=== PATIENT | female | born 1985 | race African-American/Black ===

== ENCOUNTER 2016-07-01 12:36 | Emergency (ER) | payer OTHER ==
[~2016-07-01] VITALS: Ht 180.3 cm; Wt 82.6 kg
[2016-07-01] MEDS ORDERED: ZOFRAN ODT4 MG PO (13:04)
[2016-07-01 13:24] VITALS: BP 110/68
== END 2016-07-01 13:25 | disposition home or self-care (01) ==
LOC: EME 12:36
DX: J02.0 Streptococcal pharyngitis (principal); F17.200 Nicotine dependence, unspecified, uncomplicated
CPT/HCPCS: 87651 90; 99281; 99284; J0561

== ENCOUNTER 2017-01-31 20:19 | Emergency (ER) | payer OTHER ==
[~2017-01-31] VITALS: Ht 180.3 cm; Wt 79.7 kg
[~2017-01-31 20:19] MED LIST: ZOFRAN ODT4 MG PO
[2017-01-31 21:13] LABS: CHLORIDE 99 mEq/L (99-109); POTASSIUM 3.2 mEq/L (3.7-5.4); SODIUM 136 mEq/L (136-147)
[2017-01-31 21:15] LABS: GLUCOSE 82 mg/dL (70-99)
[2017-01-31 21:16] LABS: ANION GAP 15 MEQ/L (2-14)
[2017-01-31 21:17] LABS: TOTAL BILIRUBIN 0.8 mg/dL (0.0-1.0)
[2017-01-31 21:19] LABS: ALKALINE PHOSPHATASE 73 IU/L (3-129); GFR ESTIMATE (CALCULATED) > 59 mL/min/
[2017-01-31 21:20] LABS: UREA NITROGEN (BUN) 8 mg/dL (9-23)
[2017-01-31 21:50] LABS: QUANTITATIVE HCG 70912.4 MIU/ML
[2017-01-31] MEDS ORDERED: ZOFRAN ODT8 MG PO (22:23)
[2017-01-31] MEDS ORDERED: DICLEGIS DR 101 EACH PO (22:23)
[2017-01-31] MEDS ORDERED: PEPCID20 MG PO (22:39)
[2017-01-31 22:55] VITALS: BP 128/78
== END 2017-01-31 22:57 | disposition home or self-care (01) ==
LOC: EME 20:19
PROVIDERS: Physician Assistant
DX: O21.9 Vomiting of pregnancy, unspecified (principal); O26.891 Other specified pregnancy related conditions, first trimester; R07.89 Other chest pain; O99.331 Smoking (tobacco) complicating pregnancy, first trimester; F17.200 Nicotine dependence, unspecified, uncomplicated; Z3A.11 11 weeks gestation of pregnancy
CPT/HCPCS: 76801; 80053; 81003; 84702; 99281; 99284; J2405; J7030

== ENCOUNTER 2017-07-10 20:25 | Emergency (ER) | payer SELFPAY ==
[~2017-07-10] VITALS: Ht 180.3 cm; Wt 92.6 kg
[~2017-07-10 20:25] MED LIST changes: +DICLEGIS DR 101 EACH PO; +PEPCID20 MG PO; +ZOFRAN ODT8 MG PO
[2017-07-10] MEDS ORDERED: TESSALON PERLE100 MG PO (22:07)
[2017-07-10 22:39] VITALS: BP 136/71
== END 2017-07-10 22:40 | disposition home or self-care (01) ==
LOC: EME 20:25
DX: B34.9 Viral infection, unspecified (principal); R05 Cough; F17.200 Nicotine dependence, unspecified, uncomplicated
CPT/HCPCS: 87502; 99281; 99283

== ENCOUNTER 2017-08-21 06:43 | Emergency (ER) | payer SELFPAY ==
[~2017-08-21] VITALS: Ht 180.3 cm; Wt 92.0 kg
[~2017-08-21 06:43] MED LIST changes: +TESSALON PERLE100 MG PO
[2017-08-21 07:21] LABS: BASOPHIL (%) 0.8 % (0-1); BASOPHIL COUNT 0.1 K/uL (0-0.1); EOSINOPHIL (%) 2.4 % (0-5); EOSINOPHIL COUNT 0.2 K/uL (0-0.3); HEMATOCRIT 31.8 % (36.0-46.0); IMMATURE GRANULOCYTE (%) 0.4 % (0.0-0.7); LYMPHOCYTE (%) 36.3 % (15-42); LYMPHOCYTE COUNT 2.9 K/uL (1.0-2.8); MCH 27.8 PG (29.0-34.0); MCHC 34.6 G/DL (30.0-36.0); MCV 80.3 FL (83-99); MONOCYTE (%) 7.8 % (3-12); MONOCYTE COUNT 0.6 K/uL (0-0.8); NEUTROPHIL (%) 52.3 % (45-76); NEUTROPHIL COUNT 4.2 K/uL (1.8-6.4); PLATELET COUNT 191 K/uL (156-360); RBC DIS.WIDTH-CV 14.9 % (11.8-14.6); RBC DIS.WIDTH-SD 43.8 % (39-53); RED BLOOD COUNT 3.96 M/uL (3.80-5.20)
[2017-08-21 07:58] LABS: CHLORIDE 108 MEQ/L (99-109); CREATININE 0.8 MG/DL (0.6-1.3); GFR ESTIMATE (CALCULATED) > 59 mL/min/; GLUCOSE 98 mg/dL (70-99); POTASSIUM 3.8 MEQ/L (3.7-5.4); SODIUM 139 MEQ/L (136-147); UREA NITROGEN (BUN) 7 mg/dL (9-23)
[2017-08-21 07:59] LABS: APPEARANCE SL.HAZY ((CLEAR)); BILIRUBIN NEGATIVE; BLOOD LARGE; COLOR YELLOW ((YELLOW)); GLUCOSE (STRIP) NEGATIVE; KETONES NEGATIVE; LEUKOCYTES NEGATIVE; NITRITE NEGATIVE; PROTEIN (STRIP) NEGATIVE; SPECIFIC GRAVITY 1.016 (1.000-1.030); UROBILINOGEN 0.2 MG/DL (0.2-1.0)
[2017-08-21 08:18] LABS: QUANTITATIVE HCG 37367.7 MIU/ML
[2017-08-21 08:46] LABS: BACTERIA NONE SEEN /HPF; EPITHELIAL CELLS 1+ /HPF; MUCUS TRACE /LPF; RED BLOOD CELLS NONE SEEN /HPF (0-5); UCUL ADDED? NO; WHITE BLOOD CELLS 0-5 /HPF (0-5)
[2017-08-21] MEDS ORDERED: ZOFRAN ODT4 MG PO (11:04)
[2017-08-21 11:18] VITALS: BP 121/68
== END 2017-08-21 11:19 | disposition home or self-care (01) ==
LOC: EME 06:43
PROVIDERS: Emergency Medicine
DX: O20.0 Threatened abortion (principal); O21.9 Vomiting of pregnancy, unspecified; O99.331 Smoking (tobacco) complicating pregnancy, first trimester; F17.200 Nicotine dependence, unspecified, uncomplicated; Z3A.01 Less than 8 weeks gestation of pregnancy
CPT/HCPCS: 76801; 80048; 81003; 81025; 84702; 85025; 99281; 99284

== ENCOUNTER 2017-09-25 08:59 | Emergency (ER) | payer OTHER ==
[~2017-09-25] VITALS: Ht 180.3 cm; Wt 81.6 kg
[2017-09-25 09:47] LABS: BASOPHIL (%) 0.3 % (0-1); EOSINOPHIL (%) 0.9 % (0-5); EOSINOPHIL COUNT 0.1 K/uL (0-0.3); HEMATOCRIT 30.5 % (36.0-46.0); HEMOGLOBIN 10.8 G/DL (11.9-15.5); IMMATURE GRANULOCYTE (%) 0.4 % (0.0-0.7); LYMPHOCYTE (%) 22.3 % (15-42); LYMPHOCYTE COUNT 2.2 K/uL (1.0-2.8); MCH 28.1 PG (29.0-34.0); MCHC 35.4 G/DL (30.0-36.0); MCV 79.4 FL (83-99); MONOCYTE (%) 4.7 % (3-12); MONOCYTE COUNT 0.5 K/uL (0-0.8); NEUTROPHIL (%) 71.4 % (45-76); NEUTROPHIL COUNT 6.9 K/uL (1.8-6.4); PLATELET COUNT 186 K/uL (156-360); RBC DIS.WIDTH-CV 13.5 % (11.8-14.6); RBC DIS.WIDTH-SD 38.8 % (39-53); RED BLOOD COUNT 3.84 M/uL (3.80-5.20); WHITE BLOOD COUNT 9.7 K/uL (4.1-10.2)
[2017-09-25 09:57] LABS: CHLORIDE 101 mEq/L (99-109); POTASSIUM 3.8 mEq/L (3.7-5.4); SODIUM 135 mEq/L (136-147)
[2017-09-25 09:59] LABS: GLUCOSE 101 mg/dL (70-99)
[2017-09-25 10:03] LABS: CREATININE 0.6 mg/dL (0.6-1.3); GFR ESTIMATE (CALCULATED) > 59 mL/min/
[2017-09-25 10:04] LABS: UREA NITROGEN (BUN) 7 mg/dL (9-23)
[2017-09-25 12:25] LABS: APPEARANCE CLOUDY ((CLEAR)); BILIRUBIN NEGATIVE; BLOOD NEGATIVE; COLOR YELLOW ((YELLOW)); GLUCOSE (STRIP) NEGATIVE; KETONES 20; LEUKOCYTES NEGATIVE; NITRITE NEGATIVE; PROTEIN (STRIP) NEGATIVE; SPECIFIC GRAVITY 1.012 (1.000-1.030); UROBILINOGEN 0.2 MG/DL (0.2-1.0)
[2017-09-25 12:30] LABS: BACTERIA NONE SEEN /HPF; CALCIUM OXALATE CRYSTALS 2+ /HPF; EPITHELIAL CELLS 1+ /HPF; HYALINE CASTS 0-5 /LPF; MUCUS TRACE /LPF; RED BLOOD CELLS 0-5 /HPF (0-5)
[2017-09-25] MEDS ORDERED: TYLENOL WITH C1 EACH PO (12:37)
[2017-09-25 13:05] VITALS: BP 128/72
== END 2017-09-25 13:02 | disposition home or self-care (01) ==
LOC: EME 08:59
PROVIDERS: Emergency Medicine
DX: R55 Syncope and collapse (principal); S92.331A Displaced fracture of third metatarsal bone, right foot, initial encounter for closed fracture; S92.324A Nondisplaced fracture of second metatarsal bone, right foot, initial encounter for closed fracture; O30.001 Twin pregnancy, unspecified number of placenta and unspecified number of amniotic sacs, first trimester; J45.909 Unspecified asthma, uncomplicated; Z3A.10 10 weeks gestation of pregnancy; Z87.891 Personal history of nicotine dependence; Z88.5 Allergy status to narcotic agent
CPT/HCPCS: 73630; 80048; 81003; 85025; 93005; 99281; 99285; J7030

== ENCOUNTER 2017-11-01 21:48 | Emergency (ER) | payer SELFPAY ==
[~2017-11-01] VITALS: Ht 180.3 cm; Wt 76.0 kg
[~2017-11-01 21:48] MED LIST changes: +TYLENOL WITH C1 EACH PO
[2017-11-01 22:43] LABS: HEMATOCRIT 24.8 % (36.0-46.0); HEMOGLOBIN 8.7 G/DL (11.9-15.5); MCHC 35.1 G/DL (30.0-36.0); MCV 79.7 FL (83-99); PLATELET COUNT 168 K/uL (156-360); RBC DIS.WIDTH-CV 13.6 % (11.8-14.6); RBC DIS.WIDTH-SD 38.4 % (39-53); RED BLOOD COUNT 3.11 M/uL (3.80-5.20); WHITE BLOOD COUNT 13.2 K/uL (4.1-10.2)
[2017-11-01 22:56] LABS: ALBUMIN 3.3 g/dL (3.2-4.8); CHLORIDE 105 mEq/L (99-109); POTASSIUM 3.8 mEq/L (3.7-5.4)
[2017-11-01 22:57] LABS: SODIUM 137 mEq/L (136-147)
[2017-11-01 22:59] LABS: GLUCOSE 74 mg/dL (70-99)
[2017-11-01 23:01] LABS: TOTAL BILIRUBIN 0.3 mg/dL (0.0-1.0)
[2017-11-01 23:02] LABS: ALKALINE PHOSPHATASE 87 IU/L (3-129)
[2017-11-01 23:03] LABS: CREATININE 0.6 mg/dL (0.6-1.3); GFR ESTIMATE (CALCULATED) > 59 mL/min/
[2017-11-01 23:04] LABS: AST (GOT) 22 IU/L (2-34); DIRECT BILIRUBIN 0.2 mg/dL (0.0-0.3); UREA NITROGEN (BUN) 5 mg/dL (9-23)
[2017-11-01 23:05] LABS: ALT (GPT) 20 IU/L (3-49)
[2017-11-01 23:06] LABS: LIPASE 11 U/L (1.0-51.0)
[2017-11-02] LABS: APPEARANCE CLEAR ((CLEAR)); BILIRUBIN NEGATIVE; BLOOD NEGATIVE; COLOR STRAW ((YELLOW)); GLUCOSE (STRIP) NEGATIVE; KETONES 20; LEUKOCYTES NEGATIVE; NITRITE NEGATIVE; PROTEIN (STRIP) NEGATIVE; SPECIFIC GRAVITY 1.008 (1.000-1.030); UCUL ADDED? NO; UROBILINOGEN 0.2 MG/DL (0.2-1.0)
[2017-11-02] MEDS ORDERED: IRON18 MG PO (00:43)
[2017-11-02 00:59] VITALS: BP 107/56
== END 2017-11-02 01:02 | disposition home or self-care (01) ==
LOC: EME → EDBD 21:48 → EME 21:48
PROVIDERS: Emergency Medicine
DX: O26.892 Other specified pregnancy related conditions, second trimester (principal); R10.9 Unspecified abdominal pain; O30.042 Twin pregnancy, dichorionic/diamniotic, second trimester; Z3A.15 15 weeks gestation of pregnancy; O99.512 Diseases of the respiratory system complicating pregnancy, second trimester; J45.909 Unspecified asthma, uncomplicated; Z88.5 Allergy status to narcotic agent; Z87.891 Personal history of nicotine dependence
CPT/HCPCS: 76805; 76810; 80048; 80076; 81003; 83690; 85027; 87086; 99281; 99284; J2405; J7030

== ENCOUNTER 2017-11-22 11:34 | Outpatient (CLI) | payer OTHER ==
[~2017-11-22 11:34] MED LIST changes: +FERROUS SULFAT324 M1 PO; +IRON18 MG PO; +PNV PRENATAL P1 EACH PO; +PROGESTERONE200 MG PO
[2017-11-22 12:39] VITALS: BP 127/65
[2017-11-22 12:50] LABS: BASOPHIL (%) 0.2 % (0-1); EOSINOPHIL (%) 0.3 % (0-5); EOSINOPHIL COUNT 0.1 K/uL (0-0.3); HEMATOCRIT 25.2 % (36.0-46.0); HEMOGLOBIN 8.9 G/DL (11.9-15.5); IMMATURE GRANULOCYTE (%) 1.2 % (0.0-0.7); LYMPHOCYTE (%) 13.5 % (15-42); LYMPHOCYTE COUNT 2.5 K/uL (1.0-2.8); MCHC 35.3 G/DL (30.0-36.0); MCV 79.2 FL (83-99); MONOCYTE (%) 6.1 % (3-12); MONOCYTE COUNT 1.2 K/uL (0-0.8); NEUTROPHIL (%) 78.7 % (45-76); NEUTROPHIL COUNT 14.7 K/uL (1.8-6.4); PLATELET COUNT 171 K/uL (156-360); RBC DIS.WIDTH-CV 13.3 % (11.8-14.6); RED BLOOD COUNT 3.18 M/uL (3.80-5.20); WHITE BLOOD COUNT 18.7 K/uL (4.1-10.2)
[2017-11-22 13:32] LABS: THYROTROPIN (TSH) 1.7 MIU/L (0.4-5.5)
[2017-11-22 13:37] LABS: ALBUMIN 3.2 G/DL (3.2-4.8); ALKALINE PHOSPHATASE 100 IU/L (3-129); ALT (GPT) 14 IU/L (3-49); AST (GOT) 14 IU/L (2-34); CHLORIDE 100 MEQ/L (99-109); CREATININE 0.6 MG/DL (0.6-1.3); GFR ESTIMATE (CALCULATED) > 59 mL/min/; GLUCOSE 79 mg/dL (70-99); POTASSIUM 3.4 MEQ/L (3.7-5.4); SODIUM 136 MEQ/L (136-147); TOTAL BILIRUBIN 0.4 MG/DL (0.0-1.0); TOTAL PROTEIN 6.3 G/DL (6.4-8.3); UREA NITROGEN (BUN) 4 mg/dL (9-23)
[2017-11-22] MEDS ORDERED: ONDANSETRON ODT8 MG PO (14:37)
[2017-11-22] MEDS ORDERED: PHENERGAN25 MG PR (14:42)
[2017-11-22 14:50] VITALS: BP 120/63
[2017-11-22 16:34] LABS: APPEARANCE SL.HAZY ((CLEAR)); BILIRUBIN NEGATIVE; BLOOD NEGATIVE; COLOR YELLOW ((YELLOW)); GLUCOSE (STRIP) NEGATIVE; KETONES 5; LEUKOCYTES MODERATE; NITRITE NEGATIVE; PROTEIN (STRIP) NEGATIVE; SPECIFIC GRAVITY 1.015 (1.000-1.030)
[2017-11-22 17:05] LABS: BACTERIA NONE SEEN /HPF; EPITHELIAL CELLS 1+ /HPF; MUCUS TRACE /LPF; RED BLOOD CELLS 0-5 /HPF (0-5); WHITE BLOOD CELLS 20-30 /HPF (0-5)
== END 2017-11-22 15:50 | disposition home or self-care (01) ==
LOC: LDRP-OP 11:34 → 2WEST 11:35 → LDRP-OP 05-22 06:23
PROVIDERS: Advanced Practice Midwife
DX: O21.9 Vomiting of pregnancy, unspecified (principal); O42.912 Preterm premature rupture of membranes, unspecified as to length of time between rupture and onset of labor, second trimester; O99.012 Anemia complicating pregnancy, second trimester; O99.512 Diseases of the respiratory system complicating pregnancy, second trimester; J45.909 Unspecified asthma, uncomplicated; O99.342 Other mental disorders complicating pregnancy, second trimester; F41.0 Panic disorder [episodic paroxysmal anxiety]; O30.042 Twin pregnancy, dichorionic/diamniotic, second trimester; Z3A.18 18 weeks gestation of pregnancy
CPT/HCPCS: 59025; 80053; 81003; 84443; 85025; G0378; J2405; J7120

== ENCOUNTER 2017-11-23 08:55 | Outpatient (CLI) | payer OTHER ==
[~2017-11-23 08:55] MED LIST changes: +ONDANSETRON ODT8 MG PO; +PHENERGAN25 MG PR
[2017-11-23 08:56] VITALS: BP 118/70
== END 2017-11-23 12:10 | disposition home or self-care (01) ==
LOC: LDRP-OP 08:55 → 2WEST 08:56 → LDRP-OP 05-22 16:40
DX: O42.912 Preterm premature rupture of membranes, unspecified as to length of time between rupture and onset of labor, second trimester (principal); O30.042 Twin pregnancy, dichorionic/diamniotic, second trimester; Z3A.18 18 weeks gestation of pregnancy
CPT/HCPCS: 59025; G0378; J7120

== ENCOUNTER 2017-11-24 13:20 | Outpatient (CLI) | payer OTHER ==
[2017-11-23 08:56] VITALS: BP 118/70
[~2017-11-24] VITALS: Ht 180.3 cm; Wt 87.5 kg
[2017-11-24 13:50] VITALS: BP 136/94
[2017-11-24 14:11] VITALS: BP 119/74
[2017-11-24 15:08] LABS: BASOPHIL (%) 0.3 % (0-1); BASOPHIL COUNT 0.1 K/uL (0-0.1); EOSINOPHIL (%) 0.5 % (0-5); EOSINOPHIL COUNT 0.1 K/uL (0-0.3); HEMATOCRIT 24.5 % (36.0-46.0); HEMOGLOBIN 8.7 G/DL (11.9-15.5); IMMATURE GRANULOCYTE (%) 1.1 % (0.0-0.7); LYMPHOCYTE (%) 13.1 % (15-42); LYMPHOCYTE COUNT 2.4 K/uL (1.0-2.8); MCH 28.1 PG (29.0-34.0); MCHC 35.5 G/DL (30.0-36.0); MONOCYTE (%) 4.9 % (3-12); MONOCYTE COUNT 0.9 K/uL (0-0.8); NEUTROPHIL (%) 80.1 % (45-76); NEUTROPHIL COUNT 14.4 K/uL (1.8-6.4); PLATELET COUNT 180 K/uL (156-360); RBC DIS.WIDTH-CV 13.3 % (11.8-14.6); RBC DIS.WIDTH-SD 38.5 % (39-53)
[2017-11-24 18:05] VITALS: BP 119/62
[2017-11-24 19:59] VITALS: BP 107/61
[2017-11-24 23:56] VITALS: BP 105/53
[2017-11-25 03:32] VITALS: BP 106/54
[2017-11-25 06:26] LABS: AMPHETAMINE NEGATIVE (500 ng/mL); BARBITURATES NEGATIVE (200 ng/mL); BENZODIAZEPINES NEGATIVE (150 ng/mL); BUPRENORPHINE NEGATIVE (10 ng/mL); COCAINE NEGATIVE (150 ng/mL); METHADONE NEGATIVE (200 ng/mL); METHAMPHETAMINE NEGATIVE (500 ng/mL); OPIATES (MORPHINE) NEGATIVE (100 ng/mL); OXYCODONE NEGATIVE (100 ng/mL); PHENCYCLIDINE NEGATIVE (25 ng/mL); PROPOXYPHENE NEGATIVE (300 ng/mL); THC CANNABINOIDS PRESUMPTIVE POSITIVE (50 ng/mL); TRICYCLIC ANTIDEPRESSANTS NEGATIVE (300 ng/mL)
[2017-11-25 07:44] VITALS: BP 109/56
[2017-11-25 11:43] VITALS: BP 125/82
[2017-11-25 15:15] VITALS: BP 129/73
== END 2017-11-25 16:51 | disposition short-term general hospital (02) ==
LOC: LDRP-OP 13:20 → 2WEST 13:21 → LDRP-OP 13:22 → 2WEST 11-25 16:51 → LDRP-OP 05-22 12:36
PROVIDERS: Obstetrics & Gynecology
DX: O30.042 Twin pregnancy, dichorionic/diamniotic, second trimester (principal); O31.12X1 Continuing pregnancy after spontaneous abortion of one fetus or more, second trimester, fetus 1; O00-O9A Pregnancy, childbirth and the puerperium; Z3A.18 18 weeks gestation of pregnancy; O21.9 Vomiting of pregnancy, unspecified; O99.512 Diseases of the respiratory system complicating pregnancy, second trimester; J45.909 Unspecified asthma, uncomplicated; O99.012 Anemia complicating pregnancy, second trimester
CPT/HCPCS: 59025; 76805; 84999; 85025; 86850; 86900; 86901; 88305; G0378; J0290; J2405; J7050; J7120

== ENCOUNTER 2017-12-14 02:26 | Inpatient (IN) | payer OTHER ==
[2017-12-14] VITALS (8 sets, daily range): BP systolic 106–120; BP diastolic 57–70
[2017-12-14 06:37] LABS: BASOPHIL (%) 0.5 % (0-1); BASOPHIL COUNT 0.1 K/uL (0-0.1); EOSINOPHIL (%) 0.8 % (0-5); EOSINOPHIL COUNT 0.1 K/uL (0-0.3); HEMOGLOBIN 8.5 G/DL (11.9-15.5); IMMATURE GRANULOCYTE (%) 1.4 % (0.0-0.7); LYMPHOCYTE (%) 21.5 % (15-42); LYMPHOCYTE COUNT 3.3 K/uL (1.0-2.8); MCH 27.6 PG (29.0-34.0); MCV 81.2 FL (83-99); MONOCYTE (%) 6.3 % (3-12); NEUTROPHIL (%) 69.5 % (45-76); NEUTROPHIL COUNT 10.6 K/uL (1.8-6.4); PLATELET COUNT 193 K/uL (156-360); RBC DIS.WIDTH-SD 37.6 % (39-53); RED BLOOD COUNT 3.08 M/uL (3.80-5.20); WHITE BLOOD COUNT 15.3 K/uL (4.1-10.2)
[2017-12-14 08:49] LABS: AMPHETAMINE NEGATIVE (500 ng/mL); BARBITURATES NEGATIVE (200 ng/mL); BENZODIAZEPINES NEGATIVE (150 ng/mL); BUPRENORPHINE NEGATIVE (10 ng/mL); COCAINE NEGATIVE (150 ng/mL); METHADONE NEGATIVE (200 ng/mL); METHAMPHETAMINE NEGATIVE (500 ng/mL); OPIATES (MORPHINE) NEGATIVE (100 ng/mL); OXYCODONE NEGATIVE (100 ng/mL); PHENCYCLIDINE NEGATIVE (25 ng/mL); PROPOXYPHENE NEGATIVE (300 ng/mL); THC CANNABINOIDS PRESUMPTIVE POSITIVE (50 ng/mL); TRICYCLIC ANTIDEPRESSANTS NEGATIVE (300 ng/mL)
[2017-12-14 21:43] LABS: SOURCE URINE
[2017-12-15 02:30] VITALS: BP 119/56
[2017-12-15 07:06] VITALS: BP 102/57
[2017-12-15 10:33] VITALS: BP 111/57
[2017-12-15 14:25] VITALS: BP 119/56
[2017-12-15 23:46] VITALS: BP 117/64
[2017-12-16] VITALS (8 sets, daily range): BP systolic 95–120; BP diastolic 56–68
[2017-12-16 12:57] LABS: CHLAMYDIA TRACHOMATIS NEGATIVE; NEISSERIA GONORRHOEAE NEGATIVE
[2017-12-17] VITALS (10 sets, daily range): BP systolic 102–125; BP diastolic 53–67
[2017-12-17 05:56] LABS: BASOPHIL (%) 0.5 % (0-1); BASOPHIL COUNT 0.1 K/uL (0-0.1); EOSINOPHIL (%) 1.6 % (0-5); EOSINOPHIL COUNT 0.2 K/uL (0-0.3); HEMATOCRIT 26.1 % (36.0-46.0); HEMOGLOBIN 8.9 G/DL (11.9-15.5); LYMPHOCYTE (%) 23.2 % (15-42); LYMPHOCYTE COUNT 2.5 K/uL (1.0-2.8); MCH 27.6 PG (29.0-34.0); MCHC 34.1 G/DL (30.0-36.0); MCV 80.8 FL (83-99); MONOCYTE (%) 8.2 % (3-12); MONOCYTE COUNT 0.9 K/uL (0-0.8); NEUTROPHIL (%) 65.5 % (45-76); NEUTROPHIL COUNT 7.2 K/uL (1.8-6.4); PLATELET COUNT 177 K/uL (156-360); RBC DIS.WIDTH-SD 37.6 % (39-53); RED BLOOD COUNT 3.23 M/uL (3.80-5.20); WHITE BLOOD COUNT 10.9 K/uL (4.1-10.2)
[2017-12-18] VITALS (8 sets, daily range): BP systolic 111–145; BP diastolic 56–73
[2017-12-18 10:16] LABS: BASOPHIL (%) 0.5 % (0-1); BASOPHIL COUNT 0.1 K/uL (0-0.1); EOSINOPHIL COUNT 0.2 K/uL (0-0.3); HEMATOCRIT 24.9 % (36.0-46.0); HEMOGLOBIN 8.8 G/DL (11.9-15.5); IMMATURE GRANULOCYTE (%) 1.4 % (0.0-0.7); LYMPHOCYTE (%) 18.7 % (15-42); LYMPHOCYTE COUNT 2.9 K/uL (1.0-2.8); MCH 28.6 PG (29.0-34.0); MCHC 35.3 G/DL (30.0-36.0); MCV 80.8 FL (83-99); MONOCYTE (%) 6.2 % (3-12); NEUTROPHIL (%) 72.2 % (45-76); NEUTROPHIL COUNT 11.1 K/uL (1.8-6.4); PLATELET COUNT 179 K/uL (156-360); RBC DIS.WIDTH-SD 37.4 % (39-53); RED BLOOD COUNT 3.08 M/uL (3.80-5.20); WHITE BLOOD COUNT 15.4 K/uL (4.1-10.2)
[2017-12-18] MEDS ORDERED: FERROUS SULFAT325 MG PO (10:47)
[2017-12-18] MEDS ORDERED: IBUPROFEN800 MG PO (10:47)
[2017-12-18] MEDS ORDERED: DOCUSATE SODIU100 MG PO (10:49)
== END 2017-12-18 11:53 | disposition home or self-care (01) | DRG 774 ==
LOC: LDRP-OP 02:26 → 2WEST 02:27 → LDRP-OP 05-22 19:09
PROVIDERS: Obstetrics & Gynecology; Obstetrics & Gynecology Obstetrics
PROC: 10E0XZZ Delivery of Products of Conception, External Approach (ICD-10-PCS; principal; 2017-12-18)
DX: O60.12X2 Preterm labor second trimester with preterm delivery second trimester, fetus 2 (principal); O42.912 Preterm premature rupture of membranes, unspecified as to length of time between rupture and onset of labor, second trimester; O41.12 Chorioamnionitis; O41.02X2 Oligohydramnios, second trimester, fetus 2; O32.1XX2 Maternal care for breech presentation, fetus 2; O30.042 Twin pregnancy, dichorionic/diamniotic, second trimester; O99.02 Anemia complicating childbirth; D50.9 Iron deficiency anemia, unspecified; D62 Acute posthemorrhagic anemia; O99.52 Diseases of the respiratory system complicating childbirth; J45.909 Unspecified asthma, uncomplicated; O99.344 Other mental disorders complicating childbirth; F41.0 Panic disorder [episodic paroxysmal anxiety]; O98.42 Viral hepatitis complicating childbirth; B19.10 Unspecified viral hepatitis B without hepatic coma; D57.3 Sickle-cell trait; O99.334 Smoking (tobacco) complicating childbirth; F17.210 Nicotine dependence, cigarettes, uncomplicated; O99.324 Drug use complicating childbirth; F12.90 Cannabis use, unspecified, uncomplicated; O99.214 Obesity complicating childbirth; E66.3 Overweight; Z68.25 Body mass index [BMI] 25.0-25.9, adult; Z3A.22 22 weeks gestation of pregnancy; Z37.2 Twins, both liveborn
CPT/HCPCS: 76805; 84999; 85025; 85025 91; 87491; 87591; 88307; J0595; J2405; J7120